=== PATIENT | female | born 1970 | race Caucasian/White ===

== ENCOUNTER 2024-05-23 04:53 | Outpatient (CLI) | payer OTHER, SELFPAY ==
--- NOTE | 2024-06-14 09:39 | TELEFU_ITS ---
Date of service: 06/12/24 Time of Service: 11:00 Nutrition Note NOTE: follow up with Cony and her . I affirmed she did a great job tracking her daily intake over multiple weeks. She also finished up the 2 week period on her CGM - we reviewed the report and gave her kudos as she spent 100% of time in range (70-180) with no highs or lows. Her average glucose was 120 and estimated a1c of 6.0%. She did have many great food choices as meals and snacks - breakfast tends to be the best meal. She did however balance this out with some processed items and food choices that work against her goals to address steatosis - some fried and fatty marshallese goods, toaster pastries, and some other highly refined choices. Her weight did not change much and we discussed she is stuck in the middle right now with some good choices being erased by the bad choices - need to get more consistent with the good choices and keep the sugar and processed foods out of the house so less tempted to eat/ Stressed exercise today - strength training in particular as exercise is not a large part of the equation currently. She would like to walk but weather is a deterant currently - we discussed that there will always be a barrier , just need to figure out alternives as needed. Cony left with her 2 week cgm report and 2 day sample menu Time Spent in Nutritional Counseling and Treatment: 25 min
--- NOTE | 2024-06-14 09:56 | W.NUTRFU ---
Date of service: 05/23/24 Time of Service: 11:00 Nutrition Note NOTE: Met with Cony and her regarding healthy eating for diabetes, Cony also with concerns of steatosis. We discussed same plan for each concern - eating traditional foods, avoiding added sugar and refined starches/highly processed foods, fried foods and trying to get more fiber, more lean/plant protein. Suggested milk thistle to help prevent scar formation We discussed getting exercise, especially strength training, and trying to manage stress and get good quality sleep as other approaches to these goals. We put on a CGM for her to see how her glucose behaves throughout the day and will get her a report at follow up. Tendency to buy some things out of impulse and once inside the house, hard to not eat. We discussed avoiding many isles completely like soda, snack/chip isle. Encouraged to go down isles for canned/dry beans/lentils, nuts, seeds, olive oil, canned veggies etc... Reviewed some sample menus. will follow up in 2 weeks Time Spent in Nutritional Counseling and Treatment: 60 minutes
== END 2024-05-23 04:54 | disposition home or self-care (01) ==
LOC: DS 04:53
PROVIDERS: PCP Family Medicine; Visit Provider Dietitian, Registered
DX: Z71.3 Dietary counseling and surveillance (principal)
CPT/HCPCS: 00123; 97802